=== PATIENT | male | born 1995 | race Caucasian/White ===

== ENCOUNTER → 2019-08-25 | Outpatient (CLI) | payer OTHER ==
[2019-08-25 18:09] LABS: HCT 47.9 % (39.0-53.0); HGB 16.1 gm/dL (13.0-17.5); MCV 87.7 fL (80.0-100.0); RBC 5.46 m/uL (4.30-5.90); WBC 9.7 k/uL (3.8-10.6)
[2019-08-25 18:10] LABS: MCH 29.4 pg (25.0-35.0); MCHC 33.5 g/dL (31.0-37.0); Mean Platelet Volume 8.1; Platelet Count 243 k/uL (150-450); RDW 12.5 % (11.5-15.5)
[2019-08-25 18:58] LABS: Erythrocyte Sedimentation Rate 2 mm/hr (0-15)
[2019-08-26 00:20] LABS: C Reactive Protein <0.4 mg/dL (0.0-0.8); Rheumatoid Factor, Qnt 5 IU/mL (0-15)
[2019-08-26 01:11] LABS: Streptolysin O Ab(ASO) 41 IU/mL (0-200)
[2019-08-27 07:52] LABS: HLA B27 NEGATIVE
== END | disposition home or self-care (01) ==
LOC: LABWHC1 16:55
PROVIDERS: ATTEND Orthopaedic Surgery
DX: M06.9 Rheumatoid arthritis, unspecified (principal); S83.91XD Sprain of unspecified site of right knee, subsequent encounter; M25.561 Pain in right knee; M25.551 Pain in right hip; Z87.891 Personal history of nicotine dependence
CPT/HCPCS: 36415; 84443; 85027; 85652; 86038; 86060; 86140; 86431; 86618; 86812

== ENCOUNTER 2020-11-01 07:20 | Emergency (ER) | payer OTHER ==
[2020-11-01 07:27] VITALS: BP 160/108; PULSE 60; RESP 18
[2020-11-01] MEDS ORDERED: LIDOCAINE 5% PATCH TOPICAL STA (07:57)
[2020-11-01] MEDS ORDERED: SODIUM CHLORIDE 0.9% 1,000 ML IV STA (07:57)
[2020-11-01] MEDS ORDERED: KETOROLAC 15 MG/ML 1 ML VIAL IVP STA (07:57)
--- NOTE | 2020-11-01 08:03 | ED ---
General Adult HPI - General Chief complaint: Back Pain/Injury Stated complaint: Left side pain Time Seen by Provider: 11/01/20 07:31 Source: patient Mode of arrival: ambulatory Limitations: no limitations - History of Present Illness Initial comments: Dictation was produced using [employer] dictation software. please excuse any grammatical, word or spelling errors. This patient was cared for during a federal and state declared state of emergency secondary to Covid 19 Chief Complaint: 25-year-old male presents with severe left-sided flank pain. History of Present Illness: 25-year-old male states that he woke this morning because of severe colicky flank pain. Patient denies any medical history. He states that his symptoms are in his left flank/thoracic back area. Pain is nonradiating. Patient has no history of kidney stones. No fevers. States that his pain is severe and associated with some mild nausea. He did note any ch anges to his urine. He does report that there is some mild exacerbation with deep inspiration. States that he has been coughing recently. The ROS documented in this emergency department record has been reviewed and confirmed by me. Those systems with pertinent positive or negative responses have been documented in the HPI. All other systems are other negative and/or noncontributory. PHYSICAL EXAM: General Impression: Alert and oriented x3, mild distress secondary to pain HEENT: Normocephalic atraumatic, extra-ocular movements intact, pupils equal and reactive to light bilaterally, mucous membranes moist. Cardiovascular: Heart regular rate and rhythm Chest: Able to complete full sentences, no retractions, no tachypnea Abdomen: abdomen soft, non-tender, non-distended, no organomegaly Musculoskeletal: Pulses present and equal in all extremities, no peripheral edema, pain is not reproducible with palpation to the flank area of interest Motor: no focal deficits noted Neurological: CN II-XII grossly intact, no focal motor or sensory deficits noted Skin: Intact with no visualized rashes Psych: Normal affect and mood ED course: 25-year-old male presents to the emergency department for left-sided flank pain. There is moderate suspicion of nephrolithiasis. Vital Signs upon arrival are within acceptable limits. Laboratory evaluation obtained. CBC unremarkable. Metabolic panel is negative. Urinalysis shows greater than 182 red blood cells. Computed tomography scan abdomen and pelvis without contrast roberto nonobstructing nephrolithiasis. There are 3-4 right-sided renal calculi. There is a single nonobstructing 3 mm calculus in the mid left pole of the kidney. No hydronephrosis. Patient is well-appearing at bedside after intravenous fluids and analgesia. Patient be discharged. He is given outpatient referral to urology. - Related Data Home Medications Medication Instructions Recorded Confirmed Dextroamphetamine/Amphetamine 10 mg PO BID@0800,1300 11/01/20 11/01/20 [Adderall] Previous Rx's Medication Instructions Recorded Ketorolac [Toradol] 10 mg PO Q6HR PRN #24 tab 11/01/20 Ondansetron Odt [Zofran Odt] 4 mg PO Q8HR PRN #12 tab 11/01/20 Allergies Allergy/AdvReac Type Severity Reaction Status Date / Time No Known Allergies Allergy Verified 11/01/20 08:26 Review of Systems ROS Statement: Those systems with pertinent positive or pertinent negative responses have been documented in the HPI. ROS Other: All systems not noted in ROS Statement are negative. Past Medical History Past Medical History: No Reported History History of Any Multi-Drug Resistant Organisms: None Reported Past Surgical History: No Surgical Hx Reported Past Psychological History: ADD/ADHD Smoking Status: Vaper Past Alcohol Use History: Occasional Past Drug Use History: Marijuana General Exam Limitations: no limitations Course Vital Signs 11/01/20 07:24 Pulse Rate 60 Respiratory 18 Rate Blood Pressure 160/108 O2 Sat by Pulse 100 Oximetry Medical Decision Making - Lab Data Result diagrams: 11/01/20 09:18 11/01/20 09:18 Lab Results 11/01/20 11/01/20 11/01/20 Range/Units 09:18 09:18 09:18 WBC 9.1 (3.8-10.6) k/uL RBC 4.87 (4.30-5.90) m/uL Hgb 14.7 (13.0-17.5) gm/dL Hct 41.5 (39.0-53.0) % MCV 85.3 (80.0-100.0) fL MCH 30.1 (25.0-35.0) pg MCHC 35.3 (31.0-37.0) g/dL RDW 11.8 (11.5-15.5) % Plt Count 198 (150-450) k/uL MPV 7.5 Neutrophils % 80 % Lymphocytes % 12 % Monocytes % 5 % Eosinophils % 2 % Basophils % 0 % Neutrophils # 7.3 (1.3-7.7) k/uL Lymphocytes # 1.1 (1.0-4.8) k/uL Monocytes # 0.5 (0-1.0) k/uL Eosinophils # 0.2 (0-0.7) k/uL Basophils # 0.0 (0-0.2) k/uL Sodium 139 (137-145) mmol/L Potassium 4.3 (3.5-5.1) mmol/L Chloride 105 (98-107) mmol/L Carbon Dioxide 26 (22-30) mmol/L Anion Gap 8 mmol/L BUN 17 (9-20) mg/dL Creatinine 0.87 (0.66-1.25) mg/dL Est GFR (CKD-EPI)AfAm >90 (>60 ml/min/1.73 sqM) Est GFR (CKD-EPI)NonAf >90 (>60 ml/min/1.73 sqM) Glucose 105 H (74-99) mg/dL Calcium 9.2 (8.4-10.2) mg/dL Urine Color Light Red Urine Appearance Cloudy (Clear) Urine pH 6.0 (5.0-8.0) Ur Specific [place] 1.022 (1.001-1.035) Urine Protein 1+ H (Negative) Urine Glucose (UA) Negative (Negative) Urine Ketones Negative (Negative) Urine Blood Large H (Negative) Urine Nitrite Negative (Negative) Urine Bilirubin Negative (Negative) Urine Urobilinogen <2.0 (<2.0) mg/dL Ur Leukocyte Esterase Trace H (Negative) Urine RBC >182 H (0-5) /hpf Urine WBC 8 H (0-5) /hpf Calcium Oxalate Crystal Occasional H (None) /hpf Urine Bacteria Rare H (None) /hpf Urine Mucus Moderate H (None) /hpf Disposition Clinical Impression: Kidney stones Disposition: HOME SELF-CARE Condition: Fair Instructions (If sedation given, give patient instructions): Kidney Stones (ED) Prescriptions: Ketorolac [Toradol] 10 mg PO Q6HR PRN #24 tab PRN Reason: kidney stone pain Ondansetron Odt [Zofran Odt] 4 mg PO Q8HR PRN #12 tab PRN Reason: Nausea Is patient prescribed a controlled substance at d/c from ED?: No Referrals: Shiv Garcia MD [STAFF PHYSICIAN] - 1-2 days
[2020-11-01 09:49] LABS: Basophils % (A) 0 %; Eosinophils # (A) 0.2 k/uL (0-0.7); Eosinophils % (A) 2 %; HCT 41.5 % (39.0-53.0); HGB 14.7 gm/dL (13.0-17.5); Lymphocytes # (A) 1.1 k/uL (1.0-4.8); Lymphocytes % (A) 12 %; MCH 30.1 pg (25.0-35.0); MCHC 35.3 g/dL (31.0-37.0); MCV 85.3 fL (80.0-100.0); Mean Platelet Volume 7.5; Monocytes # (A) 0.5 k/uL (0-1.0); Monocytes % (A) 5 %; Neutrophils # (A) 7.3 k/uL (1.3-7.7); Neutrophils % (A) 80 %; Platelet Count 198 k/uL (150-450); RBC 4.87 m/uL (4.30-5.90); RDW 11.8 % (11.5-15.5); WBC 9.1 k/uL (3.8-10.6)
[2020-11-01 09:54] LABS: African American GFR (CKD) >90 (>60 ml/min/1.73 sqM); Anion Gap 8 mmol/L; Blood Urea Nitrogen 17 mg/dL (9-20); Calcium 9.2 mg/dL (8.4-10.2); Carbon Dioxide 26 mmol/L (22-30); Chloride 105 mmol/L (98-107); Glucose 105 mg/dL (74-99); Non-African American GFR(CKD) >90 (>60 ml/min/1.73 sqM); Potassium 4.3 mmol/L (3.5-5.1); Sodium 139 mmol/L (137-145)
[2020-11-01 09:55] LABS: Appearance,Urine Cloudy (Clear); Bacteria,Urine Rare /hpf; Bilirubin,Urine Negative (Negative); Blood,Urine Large (Negative); Calcium Oxalate Crystals,Urine Occasional /hpf; Color,Urine Light Red; Glucose,Urine (UA) Negative (Negative); Ketones,Urine Negative (Negative); Leukocyte Esterase,Urine Trace (Negative); Mucus,Urine Moderate /hpf; Nitrite,Urine Negative (Negative); Protein,Urine 1+ (Negative); RBC,Urine >182 /hpf (0-5); Specific Gravity,Urine 1.022 (1.001-1.035); Urobilinogen,Urine <2.0 mg/dL (<2.0); WBC,Urine 8 /hpf (0-5)
--- NOTE | 2020-11-01 10:06 | CT ---
EXAMINATION TYPE: CT abdomen pelvis wo con DATE OF EXAM: 11/01/2020 COMPARISON: None HISTORY: Lt flank pain CT DLP: 496.3 mGycm Examination of the solid and hollow viscera is limited given the lack of contrast. FINDINGS: LUNG BASES: No evidence for nodule. No evidence for infiltrate. LIVER/GB: The gallbladder is unremarkable. No space-occupying hepatic lesion. PANCREAS: No pancreatic mass identified. No inflammatory process seen. SPLEEN: No evidence for splenomegaly. No intrasplenic lesions seen. ADRENALS: No adrenal nodules identified. No evidence for thickening. KIDNEYS: No evidence for renal mass. Approximately 3 or 4 right-sided renal calculi measuring between 2 and 3 mm. On the left there is a single nonobstructing 3 mm calculus mid pole left kidney. No hydr onephrosis. BOWEL: Appendix has a normal appearance. No evidence of bowel obstruction. No inflammatory process. Lymph nodes: No evidence for adenopathy greater than 1 cm. Abdominal aorta: Atheromatous changes seen. No evidence for aneurysm. Genital organs: No significant abnormality. Other: No significant abnormality. IMPRESSION: 1. Nonobstructing nephrolithiasis.
== END 2020-11-01 11:13 | disposition home or self-care (01) ==
LOC: EC 07:20
DX: N20.0 Calculus of kidney (principal); F90.9 Attention-deficit hyperactivity disorder, unspecified type; F17.290 Nicotine dependence, other tobacco product, uncomplicated; F12.90 Cannabis use, unspecified, uncomplicated; Z79.1 Long term (current) use of non-steroidal anti-inflammatories (NSAID); Z79.899 Other long term (current) drug therapy
CPT/HCPCS: 36415; 80048; 85025; 81001; 74176; 99284; 96374; 96361 ×2; J1885

== ENCOUNTER 2024-10-11 11:09 | Day surgery (SDC) | payer BC, OTHER ==
[2024-10-06 16:41] VITALS: BMI 28.5
[~2024-10-11 11:09] MED LIST: LIDOCAINE 1% (10MG/ML) FOR IV START INTRADERMA PRN; fentaNYL (PF) 50 MCG/ML 2 ML AMP IVP PRN
[2024-10-11] MEDS: IV FLUID CONTINUATION 1,000 ML IV ONE (11:30)
[2024-10-11] MEDS: ONDANSETRON 4 MG/2 ML VIAL IVP ONE (11:52)
[2024-10-11] MEDS: MIDAZOLAM 2 MG/2 ML VIAL IV PRN (11:52)
[2024-10-11] MEDS: LACTATED RINGERS 1,000 ML IV SCH (11:53)
[2024-10-11] MEDS: DEXAMETHASONE SOD PHOSPHATE 4 MG/ML 1 ML VIAL IV ONE (11:53)
[2024-10-11] MEDS: IPRATROPIUM-ALBUTEROL 3 ML NEB INHALATION STA (12:12)
[2024-10-11] MEDS ORDERED: LIDOCAINE 1% INJ 10MG/ML (20 ML MDV) ONE (12:34)
[2024-10-11] MEDS ORDERED: PROPOFOL 10 MG/ML 20 ML VIAL IV ONE (12:34)
[2024-10-11] MEDS ORDERED: MIDAZOLAM 2 MG/2 ML VIAL ONE (12:34)
[2024-10-11] MEDS ORDERED: fentaNYL (PF) 50 MCG/ML 2 ML AMP ONE (12:34)
[2024-10-11] MEDS ORDERED: SODIUM CHLORIDE 0.9% (PF) 10 ML VIAL ONE (12:34)
[2024-10-11] MEDS ORDERED: DEXAMETHASONE SOD PHOSPHATE 4 MG/ML 1 ML VIAL ONE (12:34)
[2024-10-11] MEDS ORDERED: ROPIVACAINE 5 MG/ML 30 ML VIAL ONE (12:34)
[2024-10-11] MEDS: ceFAZolin 2 GM in DEXTROSE 5% IN WATER 50 ML IVPB PRN (12:39)
[2024-10-11] MEDS: ceFAZolin 1,000 MG in SODIUM CHLORIDE 0.9% 1,000 ML IRRIGATION ONE (12:39)
--- NOTE | 2024-10-11 13:29 | P.ANPRN ---
Procedure Note - Anesthesia - Nerve Block Performed Right Adductor Canal Single Date of Procedure: 10/11/24 Procedure Start Time: 11:51 Procedure Stop Time: 11:56 Indication: Acute Post-Operative Pain, Requested by Surgeon Sedation Type: Sedate with meaningful contact maintained Preparation: Sterile Prep Position: Supine Needle Gauge: 21 Ultrasound used to visualize needle placement: Yes Ultrasound used to observe medication spread: Yes Injectate: 0.5% Ropivacaine (see comment for volume) (10 mls + 10 mls of NS + 4 mg of Decadron) Blood Aspirated: No Pain Paresthesia on Injection Noted: No Resistance on Injection: Normal Image Stored and Saved: Yes Events: Uneventful and Well Tolerated
--- NOTE | 2024-10-11 13:31 | P.ANPRN ---
Procedure Note - Anesthesia - Nerve Block Performed Right Popliteal Single Date of Procedure: 10/11/24 Procedure Start Time: 11:57 Procedure Stop Time: 12:06 Indication: Acute Post-Operative Pain, Requested by Surgeon Sedation Type: Sedate with meaningful contact maintained Preparation: Sterile Prep Position: Supine Needle Types: Facet Needle Gauge: 21 Ultrasound used to visualize needle placement: Yes Ultrasound used to observe medication spread: Yes Injectate: 0.5% Ropivacaine (see comment for volume) (20 mls with 4 mg Decadron) Blood Aspirated: No Pain Paresthesia on Injection Noted: No Resistance on Injection: Normal Image Stored and Saved: Yes Events: Uneventful and Well Tolerated
--- NOTE | 2024-10-11 13:32 | P.OP ---
Date of Procedure: 10/11/24 Preoperative Diagnosis: Displaced medial malleolus fracture right ankle Postoperative Diagnosis: Same Procedure(s) Performed: Open reduction with internal fixation right medial malleolus fracture Implants: [place]estone 4.0 mm cannulated partially-threaded screws x 2 Anesthesia: GONZÁLEZA Surgeon: Alfonso Rodriguez Estimated Blood Loss (ml): 2 Pathology: none sent Condition: stable Disposition: PACU Description of Procedure: Prior to the patient being brought to the op room, anesthesia administered a nerve block on the operative extremity. The patient was brought into the op room and placed on table in supine position. Timeout was taken to confirm correct patient identifiers, correct laterality of surgery, and correct procedure. Once all staff in the room was in agreement timeout, the patient was induced and placed under general anesthesia. A well-padded tourniquet was placed on the right calf and then the right leg was prepped and draped in usual manner. The right leg was exsanguinated and the tourniquet inflated to 250 mmHg. Utilizing fluoroscopy, the location of the fracture was identified with a metallic marker. A small incision was made over the area. An elevator was inserted through the incision into the fracture. This was used to evacuate hematoma and to sweep any of the soft tissue interposing between the fracture fragments out. Once completed the area was thoroughly irrigated and suctioned with antibiotic saline. The fracture was easily reduced manually under fluoroscopy. Guidewires for 4.0 partially-threaded screws were inserted at the tip of the medial malleolus and advanced across the fracture and into the tibia. The orientation of the screws was perpendicular to the fracture line. Fluoroscopy confirmed the proper placement of the wire on AP oblique and lateral views. Small stab incisions were made through the skin at the entry point of the wires. Drilling was done just past the fracture line. 4.0 mm cannulated partially-threaded screws were inserted over the wires and advanced until the heads engaged the distal cortex of the medial malleolus and compress the fracture. Final fluoroscopic imaging showed full compression and anatomic alignment of the fracture. Hardware placement was acceptable. The wires were removed and the wounds irrigated thoroughly with antibiotic saline. The incisions were closed with 3-0 nylon. Nonadherent gauze and a dry sterile dressing were applied to the ankle. The tourniquet was released and capillary refill returned to all digits on the foot. The patient was placed in a below- knee fracture boot with the ankle neutral position. Anesthesia was reversed and the patient was taken recovery with vital signs stable.
[2024-10-11 13:35] VITALS: TEMP 97.2
[2024-10-11] MEDS: HYDROmorphone 0.5 MG/0.5 ML SYRINGE IVP PRN (13:44)
[2024-10-11] MEDS: HYDROcodone/APAP 5-325MG 1 EACH TAB PO STA (14:43)
[2024-10-11 15:48] VITALS: BP 136/80; PULSE 76; RESP 14
--- NOTE | 2024-10-11 15:58 | XR ---
EXAMINATION TYPE: XR ankle complete RT, FL guidance operating room DATE OF EXAM: 10/11/2024 1:32 PM COMPARISON: None CLINICAL INDICATION: Male, 29 years old with history of ORIF Rt Ankle; PHH, pain FLUOROSCOPY 3 images are provided demonstrating 2 percutaneous screw fixation for the oblique fracture at the bas e of the medial malleolus. Alignment grossly anatomic. Ankle mortise appears congruent now. Total fluoroscopy time: 31.8 seconds. Total dose: 0.34 Gycm2 [facility], Workstation: [id number], 10/11/2024 3:56 PM
== END 2024-10-11 15:51 | disposition home or self-care (01) ==
LOC: OR 11:09
PROVIDERS: ATTEND Podiatrist
DX: S82.51XA Displaced fracture of medial malleolus of right tibia, initial encounter for closed fracture (principal); G89.18 Other acute postprocedural pain; F90.9 Attention-deficit hyperactivity disorder, unspecified type; F17.290 Nicotine dependence, other tobacco product, uncomplicated; Z79.899 Other long term (current) drug therapy; X58.XXXA Exposure to other specified factors, initial encounter
CPT/HCPCS: 27766; 64447; 64445; 73610; C1713; J2250; J1100; J0690 ×2; J2405; J2003; J3010; J2795; J2704; J1171